=== PATIENT | female | born 1965 | race African-American/Black ===

== ENCOUNTER 2020-08-30 23:58 | Emergency (ER) | payer OTHER ==
[~2020-08-30] VITALS: Ht 167.6 cm; Wt 99.8 kg
[~2020-08-30 23:58] MED LIST: HCTZ PO; LORTABELXR PO; ZPAK PO
[2020-08-31] MEDS ORDERED: METHOCARBAMOL500 M2 PO (01:09)
[2020-08-31] MEDS ORDERED: IBUPROFEN 800800 M1 PO (01:09)
[2020-08-31 01:36] VITALS: BP 113/74
--- NOTE | 2020-08-31 13:06 | EKG ---
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
== END 2020-08-31 01:37 | disposition home or self-care (01) ==
LOC: ER 23:58
DX: M43.6 Torticollis (principal); M25.511 Pain in right shoulder; I10 Essential (primary) hypertension; Z98.890 Other specified postprocedural states; Z79.899 Other long term (current) drug therapy